=== PATIENT | female | born 1980 | race Two or more races ===

== ENCOUNTER → 2017-07-27 | Emergency (ER) | payer OTHER ==
[~2017-07-27] VITALS: Ht 157.5 cm; Wt 59.0 kg
[~2017-07-27] MED LIST: AMBIEN5 MG; CLONAZEPAM2 MG; FLUOXETINE; LORATADINE; MINIPRESS5 MG; PROTONIX40 MG; PROZAC20 MG; QUETIAPINE FUMA50 MG; TIROSINT100 MCG; ZANTAC150 MG; [UNRECOGNIZED DRUG - OTHER]; [UNRECOGNIZED DRUG - OTHER]
== END | disposition home or self-care (01) ==
LOC: ER 18:47
DX: R53.1 Weakness (principal); G25.2 Other specified forms of tremor; F41.0 Panic disorder [episodic paroxysmal anxiety]; R06.4 Hyperventilation; G35 Multiple sclerosis